=== PATIENT | female | born 1960 | race Caucasian/White ===

== ENCOUNTER 2020-12-25 23:29 | Emergency (ER) | payer OTHER ==
[~2020-12-25] VITALS: Ht 160 cm; Wt 90.7 kg
[~2020-12-25 23:29] MED LIST: CIPRO500 MG PO; KETO10TA2 PO; LEVAQUIN750 MG PO; PROVENTIL3 ML/2.5 M IH; TESSALON200 MG PO; TUSSI PRES-B L120 M1 PO; VASOTEC10 MG; VERAPAMIL ER240 MG
[2020-12-26] MEDS ORDERED: PEPCID40 MG PO (07:39)
== END 2020-12-26 07:58 ==
LOC: ER 23:29
DX: T51.0X1A Toxic effect of ethanol, accidental (unintentional), initial encounter (principal); K29.60 Other gastritis without bleeding; Y92.59 Other trade areas as the place of occurrence of the external cause